=== PATIENT | female | born 1960 | race Caucasian/White ===

== ENCOUNTER → 2017-06-28 | Outpatient (CLI) | payer OTHER ==
[~2017-06-28] MED LIST: AZMANEX; FENTANYL1 PATCH .7 TOP; FORADIL; IBUPROFEN PO; PERCOCET10 PO; SPIRIVA18 MCG PO; VIVELLE.0375 MG/2 TOP; ZYRTEC PO
--- NOTE | ~2017-06-28 | MY26 ---
[facility]. [facility] A Service of [facility] & [facility] RADIOLOGY TEXT RESULTS PATIENT: ANNITA OSORIO LOCATION: [facility] : 62 UNIT #: [id number] AGE: [address]: Merced Ritter SEX: F ORDER DR: [id number] [facility] [address] [place], [place] [address] [id number] O MR#: [id number] Acc #: [id number] NAME: ANNITA OSORIO : 1960 SEX: F STUDY DATE/TIME: 06/28/2017 8:51 UNIT: [facility] ROOM: STUDY DESCRIPTION: MY [facility] DIAGNOSTIC W/ CAD BILAT Attending Physician: Merced Ritter A.P.R.N. Ordering Physician: Merced Ritter A.P.R.N. Primary Care Physician: Merced Ritter A.P.R.N. MEDICAL IMAGING REPORT This report is preliminary unless electronic signature is present REVISED REPORT SEE ADDENDUM EXAM Bilateral digital diagnostic mammogram with CAD, 06/28/2017 HISTORY 56-year-old female with palpable abnormality in the right breast over the past few weeks. Patient also states she has undergone weight loss since the previous mammogram in 2011. No personal or family history of breast cancer. COMPARISON Bilateral digital diagnostic mammogram and ultrasound 08/16/2012. Patient states that she has had no followup mammogram or ultrasound imaging of the breast since 2011. FINDINGS CC, MLO and true ML views, extended craniocaudal lateral views of the right breast. CC and MLO views were obtained of the left breast. The study was performed utilizing digital technique and reviewed with an FDA-approved CAD device. Heterogeneously dense fibroglandular tissue is present bilaterally which can limit sensitivity of mammography. An oval circumscribed nodule is demonstrated posterior third of the right breast upper outer quadrant measuring slightly over 1.0 cm. It corresponds to the patient's palpable abnormality, denoted by a triangular skin marker. Upon spot compression, it becomes more conspicuous, without suspicious associated microcalcification or architectural distortion. Fibronodular density in the posterior third right breast inferior hemisphere on the MLO view is thought to correspond to a similar STS. [facility] A Service of [facility] & [facility] / [facility] RADIOLOGY TEXT RESULTS PATIENT: ANNITA OSORIO LOCATION: [facility] : 62 UNIT #: [id number] AGE: [address]: Merced Ritter SEX: F ORDER DR: fibronodular density on previous MLO mammogram. Previous mammogram documents the presence of two rounded increased density foci in the 12 o'clock axis left breast, which were thought to correspond to suspected complex cysts on ultrasound. The upper outer left breast today appears less dense. There is only a faint area of increased fibroglandular tissue measuring less than 5.0 mm in this same vicinity. However, on today's examination, a 7.0 mm focus of increased fibronodular density is seen in the left subareolar region close to the 1 o'clock axis which appears somewhat similar to prior exam. Benign calcifications are present bilaterally. Calcifications particularly in the right breast appear increased but nonetheless benign. Targeted diagnostic right breast ultrasound was performed at the site of patient's palpable complaint. At 10 o'clock axis 4.0 cm from the nipple, a 1.2 cm circumscribed complex cystic lesion is demonstrated. It demonstrates eccentric internal echoes, but no discernible internal vascularity. It demonstrates increased acoustic transmission. Benign complex cyst with hemorrhagic components is favored. Another simple cyst is seen immediately adjacent to it measuring about 4.0 mm. In the 12 o'clock left breast 1.0 cm from the nipple, a 6.0 mm oval isoechoic wider than tall nodule is seen with enhanced acoustic transmission. It is thought most likely to correspond to a complex cystic lesion seen on the previous mammogram which measures 7.0 mm. However, on today's examination it is documented to be at the 12 o'clock position, as opposed to the 1 o'clock position. I suspect this may represent the same lesion but it is quite difficult to say this with absolute certainty. With respect to the upper outer left breast 12 o'clock position, no sonographic abnormality is identified. The suspected complex elongated cyst measuring 1.2 cm in the previous examination apparently has resolved in the interval. IMPRESSION 1.2 cm complex cystic nodule in the upper outer right breast posterior third 10 o'clock corresponds to the patient's palpable complaint. Based upon sonography, I favor that it represents a hemorrhagic or proteinaceous cyst. Options of surgical excision, fine-needle aspiration or 6-month followup ultrasound were discussed with the patient. Due to pain and tenderness, she wishes to have the lesion aspirated at this time. Ultrasound fine needle aspiration can be scheduled by the referring physician's office at the patient's convenience, and the fluid can be sent for cytologic analysis, as well. Additionally, a hypoechoic nodule in the 1 o'clock left breast near the subareolar region measures approximately 6.0 mm. It, too, is favored to represent a complex hemorrhagic or proteinaceous cyst. Again, options of surgical excision, fine needle aspiration or 6-month followup ultrasound were discussed with the patient. [facility] A Service of [facility] RADIOLOGY TEXT RESULTS PATIENT: ANNITA OSORIO LOCATION: [facility] : 62 UNIT #: [id number] AGE: [address]: Merced Ritter SEX: F ORDER DR: She wishes to have this nodule aspirated at the same time. I have discussed with the patient that if the nodule does not aspirate, it could be converted to an ultrasound-guided core biopsy at this time. She wishes to proceed. This left breast nodule aspiration and/or biopsy can be performed on the same date as the right breast aspiration. Patients over the age of 40 are entered into a reminder system with target due date for the next mammogram. A result letter will also be sent to the patient. BIRADS: 3 Probably Benign Finding; Short interval follow-up suggested Dictated by... Brandi Hassan M.D. THIS IS AN ELECTRONICALLY VERIFIED REPORT Brandi Hassan M.D. at 06/29/2017 8:56 AM Matt TD: 06/28/2017 12:48 JOB #: [id number] ADDENDUM I have contacted the breast patient care associateAdamaris. She is in the process of notifying the referring physician's office at this time. Dictated by... Brandi L. Haycraft, M.D. THIS IS AN ELECTRONICALLY VERIFIED REPORT Brandi Hassan M.D. at 06/30/2017 8:43 AM TRACEY/prema TD: 06/28/2017 12:53 JOB #: [id number] CC: Ovi/troy Please Delete MEDICAL IMAGING REPORT Page 1 of 1 COPY
--- NOTE | ~2017-06-28 | US17 ---
[facility] A Service [facility] RADIOLOGY TEXT RESULTS PATIENT: ANNITA OSORIO LOCATION: [facility] : 62 UNIT #: [id number] AGE: [address]: Merced Ritter OUTDOOR RECREATION SPECIALIST SEX: F ORDER DR: [id number] [facility] [address] [place], [place] [address] [id number] O MR#: [id number] Acc #: [id number] NAME: ANNITA OSORIO : 1960 SEX: F STUDY DATE/TIME: 06/28/2017 9:12 UNIT: [facility] ROOM: STUDY DESCRIPTION: US Breast Bilateral Attending Physician: Merced Ritter A.P.R.N. Ordering Physician: Merced Ritter A.P.R.N. Primary Care Physician: Merced Ritter A.P.R.N. MEDICAL IMAGING REPORT This report is preliminary unless electronic signature is present EXAM Bilateral diagnostic breast ultrasound. DATE 06/28/2017 HISTORY Palpable abnormality in the right breast for a few weeks. Bilateral breast nodules on today's diagnostic mammogram for which sonographic imaging is necessary. COMPARISON Bilateral diagnostic mammogram 06/28/2017. Bilateral diagnostic mammogram and ultrasound 08/16/2012. FINDINGS Targeted bilateral breast ultrasound was performed. Please refer to the diagnostic mammogram report from the same day for full description mammographic and sonographic findings and recommendations. IMPRESSION BIRADS 3. Probably benign findings. Please for the diagnostic mammogram report from the same day for full description mammographic sonographic findings recommendations. Dictated by... Brandi Hassan M.D. THIS IS AN ELECTRONICALLY VERIFIED REPORT Brandi Hassan M.D. at 06/29/2017 8:56 AM [facility]/maribel TD: 06/28/2017 12:51 JOB #: [id number] [facility] A Service [facility] RADIOLOGY TEXT RESULTS PATIENT: ANNITA OSORIO LOCATION: [facility] : 62 UNIT #: [id number] AGE: [address]: Merced Ritter SEX: F ORDER DR: MEDICAL IMAGING REPORT Page 1 of 1 COPY
--- NOTE | ~2017-06-28 | CR63 ---
[facility] A Service of [facility] & [facility] RADIOLOGY TEXT RESULTS PATIENT: ANNITA OSORIO LOCATION: [facility] : 62 UNIT #: [id number] AGE: [address]: Merced Ritter SEX: F ORDER DR: [id number] [facility] [address] [place], [place] [address] [id number] O MR#: [id number] Acc #: [id number] NAME: ANNITA OSORIO : 1960 SEX: F STUDY DATE/TIME: 06/28/2017 10:06 UNIT: [facility] ROOM: STUDY DESCRIPTION: CR Chest 2 View Attending Physician: Merced Ritter A.P.R.N. Ordering Physician: Merced Ritter A.P.R.N. Primary Care Physician: Merced Ritter A.P.R.N. MEDICAL IMAGING REPORT This report is preliminary unless electronic signature is present EXAM Chest 06/28/2017. [facility] HISTORY 56 year old woman chest pain and cough, chest congestion. Symptoms x2 weeks. Patient is smoker. COMPARISON Portable chest 07/19/2008 FINDINGS PA and lateral chest views show normal cardiac size and configuration. Hilar structures are preserved. Bilateral lungs are hyperinflated with some lytton of both hemidiaphragms. Soft tissue artifact left upper hemithorax. Generalized demineralization with mild anterior wedging of a mid thoracic vertebrae. IMPRESSION COPD. No acute chest finding. Dictated by... Anton Rodriguez M.D. THIS IS AN ELECTRONICALLY VERIFIED REPORT Anton Rodriguez M.D. at 06/28/2017 3:56 PM MP/maribel TD: 06/28/2017 14:57 JOB #: [id number] MEDICAL IMAGING REPORT [facility] A Service of [facility] & [facility] RADIOLOGY TEXT RESULTS PATIENT: ANNITA OSORIO LOCATION: [facility] : 62 UNIT #: [id number] AGE: [address]: Merced Ritter SEX: F ORDER DR: Page 1 of 1 COPY
== END | disposition home or self-care (01) ==
LOC: CRAD 08:14 → CMAM 08:14
DX: N63 Unspecified lump in breast (principal); R05 Cough; R07.9 Chest pain, unspecified; J44.9 Chronic obstructive pulmonary disease, unspecified
CPT/HCPCS: 71020; 76641; G0204

== ENCOUNTER → 2017-06-30 | Day surgery (SDC) | payer OTHER ==
--- NOTE | ~2017-06-30 | US19 ---
[facility] A Service of [facility] & [facility] RADIOLOGY TEXT RESULTS PATIENT: ANNITA OSORIO LOCATION: [facility] : 62 UNIT #: [id number] AGE: [address]: Merced RitterP SEX: F ORDER DR: [id number] [facility] [address] [place], [place] [address] [id number] O MR#: [id number] Acc #: [id number] NAME: ANNITA OSORIO : 1960 SEX: F STUDY DATE/TIME: 06/30/2017 10:32 UNIT: [facility] ROOM: STUDY DESCRIPTION: US Breast Cyst Aspiiration W I Attending Physician: Merced Ritter A.P.R.N. Ordering Physician: Merced Ritter A.P.R.N. Primary Care Physician: Merced Ritter A.P.R.N. MEDICAL IMAGING REPORT This report is preliminary unless electronic signature is present REVISED REPORT SEE ADDENDUM EXAM Bilateral ultrasound-guided breast cyst aspiration and ultrasound-guided core biopsy. INDICATIONS Complex right breast and left breast cystic lesions. PROCEDURE Initially, the right breast was evaluated. At 10 o'clock, there is a complex partially cystic, partially solid-appearing lesion that is about 12 mm in diameter. The lesions are superficial, and the patient's breasts are fairly small. After informed consent, sterile preparation and local anesthesia, I punctured the lesion with a 20-gauge needle and aspirate some thick greenish fluid out of it. The lesions both collapsed completely. A marker clip was placed at the aspiration site, and the fluid was sent for cytology. Next, the left breast abnormality was evaluated. There is about a 7-mm complex cyst versus small solid nodule in the left breast at 12 o'clock. After informed consent, sterile preparation, and local anesthesia, the cyst was punctured with an 18-gauge needle, and it did not collapse. I could not withdraw any fluid. Then, I used a 14-gauge Achieve needle set, and after a skin shekhar, and placed the guide needle into the breast. I fired the 14-gauge needle through the lesion and obtained 2 successive samples. The lesion seemed to disappear after that. I placed a marker clip at the site. The tissue was placed in formalin. Post procedure mammogram showed the clips in good position. [facility] A Service of [facility] RADIOLOGY TEXT RESULTS PATIENT: ANNITA OSORIO LOCATION: [facility] : 62 UNIT #: [id number] AGE: [address]: Merced Ritter SEX: F ORDER DR: IMPRESSION Successful ultrasound-guided aspiration of right breast complex cyst and ultrasound-guided core biopsy of apparent small solid nodule in the left breast at 12 o'clock. Images of each pass were recorded and stored in the DR system. Pathology report is pending. Dictated by... Tony Durham M.D. THIS IS AN ELECTRONICALLY VERIFIED REPORT Tony Durham M.D. at 06/30/2017 8:15 PM JANET/onofre TD: 06/30/2017 16:16 JOB #: [id number] ADDENDUM Pathology report has been returned and it shows benign breast parenchyma with portions of a cyst wall and inflammatory cell infiltrate. The findings are concordant and annual screening is recommended. Dictated by... Tony Durham M.D. THIS IS AN ELECTRONICALLY VERIFIED REPORT Tony Durham M.D. at 07/09/2017 12:19 PM JANET/randy TD: 07/08/2017 10:42 JOB #: [id number] MEDICAL IMAGING REPORT Page 1 of 1 COPY
== END | disposition home or self-care (01) ==
LOC: CGUS 06-29 13:00 → CWCC 09:20 → CGUS 09:20
DX: N61.0 Mastitis without abscess (principal); N60.02 Solitary cyst of left breast
CPT/HCPCS: 88108; 88305; G0204